=== PATIENT | female | born 1950 | race Caucasian/White ===

== ENCOUNTER 2017-04-10 15:42 | Inpatient (IN) | payer MEDICARE ==
--- NOTE | 2017-04-10 16:02 | ED Physician Chart ---
ED Chief Complaint/HPI - Patient Information Date Seen:: 04/10/17 Time Seen:: 16:02 Chief Complaint:: SUICIDAL IDEATION History of Present Illness:: THIS 67 YEAR OLD FEMALE IS DEPRESSED OVER HER MEDICAL PROBLEMS WHICH INCLUDE CIRRHOSIS (NO ALCOHOL IN PAST 3 YEARS). LEFT SIDED HEMIPARALYSIS, AND EASY BRUISING. SHE HAS A FRIEND WHO TRIED TO COMMIT SUICIDE BY SLASHING HER WRISTS, AND WHEN THAT FAILED SHE SHOT HERSELF IN THE HEAD AND IS NOW COMPLETELY BLIND. THE PATIENT IS DESPONDENT IN THAT SHE COULD END UP THE SAME WAY. 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 PT HAS 6/10 PAIN IN HER LT FOREARM WHICH IS ALSO CONTRACTED DUE TO NEUROLOGIC INJURY SUSTAINED AT THE TIME OF KNEE SURGERY. THERE ARE NO RELIEVING OR EXACERBATING FEATURES. PT DENIES HEADACHE, VISUAL PROBLEMS, DENTAL PAIN,NECK PAIN, CHEST PAIN OR ABDOMINAL PAIN. NO NAUSEA OR VOMITING OR DIARRHEA. NO MELENA. Allergies:: Allergies Allergy/AdvReac Type Severity Reaction Status Date / Time No Known Allergies Allergy Verified 04/10/17 15:57 ED Review of Systems - Review of Systems General/Constitutional: No fever, No chills, No weight loss, No diaphoresis, Other (mild swelling in both lower extremities.) Skin: Bruising Head: No headache, No light-headedness Eyes: No loss of vision, No diplopia ENT: No earache, No sore throat, No tinnitus Neck: No neck pain, No swelling, No thyromegaly, No stiffness, No mass noted Cardio Vascular: No chest pain, No palpitations, No orthopnea, other (MILD PERIPHERAL EDEMA NEAR ANKLES.) Pulmonary: No SOB, No cough, No sputum, No wheezing GI: No nausea, No vomiting, No diarrhea, No pain, No melena, No hematemesis G/U: No dysuria, No frequency, No hematuria, No nacturia Wood Pattern Maker: No abnormal vaginal bleed Musculoskeletal: Bone or joint pain (LEFT FOREARM AND WRIST AREA.), No back pain Psychiatric: Depression, Anxiety, No suicidal ideation, No auditory hallucination, No visual hallucination Hematopoietic: Bruising, No lymphadenopathy Allergic/Immuno: No urticaria, No angioedema Neurological: No syncope, Focal symptoms (LEFT UPPER EXTREMITY.), Weakness, No headache, No seizure, No vertigo Family Medical History - Family Member Maternal History Unknown: Yes ED Physical Exam - Physical Examination General/Constitutional: Awake, Well-developed, well-nourished, Alert Other Gen/Cons comments:: MILD TO MODERATE DISTRESS FROM LEFT FOREARM PAIN. Head: Atraumatic Eyes: Lids, conjuctiva normal, PERRL, EOMI Other Eyes comments:: SCERA ANICTERIC. NO NYSTAGMUS ED Labs/Radiology/EKG Results - Lab Results Results: Laboratory Tests 04/10/17 04/10/17 04/10/17 16:15 16:15 16:15 WBC 5.1 RBC 3.66 L Hgb 11.7 L Hct 34.9 L MCV 95.2 MCH 31.8 H MCHC Differential 33.5 RDW 19.1 Plt Count 80 L MPV 8.0 Neutrophils % 53.4 Lymphocytes % 33.6 Monocytes % 7.4 Eosinophils % 4.6 Basophils % 1.0 PT INR Sodium 138 Potassium 3.7 Chloride 109 H Carbon Dioxide 25.3 Anion Gap 7.4 BUN 10 Creatinine 0.5 L Est GFR ( Amer) > 60.0 Est GFR (Non-Af Amer) > 60.0 BUN/Creatinine Ratio 20.0 Glucose 127 H Calcium 8.9 Total Bilirubin 1.0 AST 33 ALT 15 Alkaline Phosphatase 100 Troponin I < 0.01 L Total Protein 6.3 Albumin 3.3 L Globulin 3.0 Albumin/Globulin Ratio 1.1 Amylase 51 Lipase 47 04/10/17 16:15 WBC RBC Hgb Hct MCV MCH MCHC Differential RDW Plt Count MPV Neutrophils % Lymphocytes % Monocytes % Eosinophils % Basophils % PT 12.5 H INR 1.19 Sodium Potassium Chloride Carbon Dioxide Anion Gap BUN Creatinine Est GFR ( Amer) Est GFR (Non-Af Amer) BUN/Creatinine Ratio Glucose Calcium Total Bilirubin AST ALT Alkaline Phosphatase Troponin I Total Protein Albumin Globulin Albumin/Globulin Ratio Amylase Lipase Laboratory Tests 04/10/17 04/10/17 04/10/17 16:15 16:15 16:15 WBC 5.1 RBC 3.66 L Hgb 11.7 L Hct 34.9 L MCV 95.2 MCH 31.8 H MCHC Differential 33.5 RDW 19.1 Plt Count 80 L MPV 8.0 Neutrophils % 53.4 Lymphocytes % 33.6 Monocytes % 7.4 Eosinophils % 4.6 Basophils % 1.0 PT INR Sodium 138 Potassium 3.7 Chloride 109 H Carbon Dioxide 25.3 Anion Gap 7.4 BUN 10 Creatinine 0.5 L Est GFR ( Amer) > 60.0 Est GFR (Non-Af Amer) > 60.0 BUN/Creatinine Ratio 20.0 Glucose 127 H Calcium 8.9 Total Bilirubin 1.0 AST 33 ALT 15 Alkaline Phosphatase 100 Ammonia Troponin I < 0.01 L Total Protein 6.3 Albumin 3.3 L Globulin 3.0 Albumin/Globulin Ratio 1.1 Amylase 51 Lipase 47 04/10/17 04/10/17 04/11/17 16:15 17:12 06:40 WBC 4.4 L RBC 3.41 L Hgb 11.0 L Hct 32.9 L MCV 96.5 MCH 32.2 H MCHC Differential 33.4 RDW 19.0 Plt Count 60 L D MPV 7.9 Neutrophils % 58.3 Lymphocytes % 29.2 Monocytes % 7.1 Eosinophils % 4.9 Basophils % 0.5 PT 12.5 H INR 1.19 Sodium Potassium Chloride Carbon Dioxide Anion Gap BUN Creatinine Est GFR ( Amer) Est GFR (Non-Af Amer) BUN/Creatinine Ratio Glucose Calcium Total Bilirubin AST ALT Alkaline Phosphatase Ammonia 74 H Troponin I Total Protein Albumin Globulin Albumin/Globulin Ratio Amylase Lipase 04/11/17 04/11/17 06:40 06:40 WBC RBC Hgb Hct MCV MCH MCHC Differential RDW Plt Count MPV Neutrophils % Lymphocytes % Monocytes % Eosinophils % Basophils % PT INR Sodium 138 Potassium 3.7 Chloride 110 H Carbon Dioxide 24.0 Anion Gap 7.7 BUN 9 Creatinine 0.4 L Est GFR ( Amer) > 60.0 Est GFR (Non-Af Amer) > 60.0 BUN/Creatinine Ratio 22.5 Glucose 100 D Calcium 8.7 Total Bilirubin 1.3 H AST 32 ALT 17 Alkaline Phosphatase 91 Ammonia 66 H Troponin I Total Protein 6.4 Albumin 3.1 L Globulin 3.3 Albumin/Globulin Ratio 0.9 L Amylase Lipase The CBC is unremarkable in that the patient has no leukocytosis or evidence of anemia. Her platelet count is depressed. Renal function studies were normal. Electrolytes were within normal parameters. Liver function tests show no elevation of the AST or the ALT or the alkaline phosphatase. Her INR was 1.1. In the past couple of weeks the patient has had a serum ammonia level in the 110 to 120 range. The ammonia level today was in the 60's range, which is a marked IMPRESSIONt IMPRESSION: NO ACUTE LABORATORY VALUES OF CLINICAL SIGNIFICANCE. EKG Interpretation: normal sinus rhythm in the 70 range with no ectopy. Normal QRS axis. Normal WA interval. Normal QRS duration. Normal QT interval. No significant ST segment elevation or depression. Q wave in AVF suggestive of old inferior ME. IMPRESSION: NO ACUTE ISCHEMIC FINDINGS. CXR: SINGLE AP VIEW. Mild Cardiomegaly. Prominent hilar markings bilaterally. No areas of pulmonary consolidation. No pleural effusion. No pneumothorax. IMPRESSION: NO ACUTE CARDIOPULMONARY FINDINGS. ED Assessment - Assessment General Assessment: CASE SUMMARY: THIS 67 YEAR OLD FEMALE WAS SENT TO THE ED FOR EVALUATION OF HER PSYCHIATRIC STATUS AND METABOLIC CONDITION. SHE WAS AWAKE AND ALERT AND ORIENTED X 4. SHE ADMITS BEING DEPRESSED OVER HER PHYSICAL CONDITION BUT HAS NO INTENT OF COMMITTING SUICIDE. SHE WAS VERY ADAMANT IN WANTING TO RETURN TO HER NURSING FACILITY IN THAT SHE HAS RELATIVES COMING FROM THE [facility] TO VISIT HER FOR THANKSGIVING. SHE HADN'T SEEN THESE COUSINS IN YEARS. HER LAB STUDIES WERE NORMAL OR WERE IMPROVED OVER RESENT RESULTS VALUES. HER NURSING FACILITY REFUSED TO ACCEPT HER BACK. SHE WILL BE ADMITTED TO A MED/ SURG BED AND HAVE A PSYCHIATRIC EVALUATION IN THE MORNING. ADMITTED TO DR. DOS SANTOS IN STABLE CONDITION. MDM DDX CIRRHOSIS: NOT Acute Hepatic encephalopathy based on physical examination and a trending lowering of her serum ammonia level. NOT Hepatic Coagulopathy based on her INR of 1.1. NOT G.I. bleeding based on no anemia and no history of melena or hematemesis. ED Septic Shock - . Is Septic Shock (SBP<90, OR Lactate>4 mmol\L) present?: No ED Reassessment (Disposition) - Reassessment Reassessment Condition:: Unchanged - Diagnosis Diagnosis:: CIRRHOSIS, DEPRESSION - Aftercare/Follow up Instructions Aftercare/Follow-Up Instructions:: Counseled pt regarding lab results/diagnosis & need follow up - Patient Disposition Discharge/Transfer:: Acute Care w/in this hosp Accepting Physician:: DR. DOS SANTOS ED Discharge Plan - Patient Disposition Admit/Discharge/Transfer: Acute Care w/in this hosp
[2017-04-10] MEDS ORDERED: Hydrocodone/APAP 5mg/325mg Tab ONE (16:34)
[2017-04-10 16:35] LABS: INR 1.19 (0.5-1.4); PROTHROMBIN TIME (TEST) 12.5 SECONDS (9.5-11.5)
[2017-04-10] MEDS ORDERED: Hydrocodone/APAP 5mg/325mg Tab PO ONE (16:36)
[2017-04-10 16:37] LABS: ALB/GLOB RATIO 1.1 (1.0-1.8); ALKALINE PHOSPHATASE 100 U/L (34-104); AMYLASE SERUM 51 U/L (29-103); ANION GAP 7.4 (7.0-16.0); BUN - UREA NITROGEN 10 mg/dL (7-25); CALCIUM SERUM 8.9 mg/dL (8.6-10.3); CARBON DIOXIDE 25.3 mEq/L (21.0-31.0); CHLORIDE 109 mEq/L (98-107); CREATININE - SERUM 0.5 mg/dL (0.6-1.2); GLUCOSE 127 mg/dL (70-105); LIPASE 47 U/L (11-82); POTASSIUM SERUM 3.7 mEq/L (3.5-5.1); SGOT 33 U/L (13-39); SGPT/ALT 15 U/L (7-52); SODIUM SERUM 138 mEq/L (136-145)
[2017-04-10 16:41] LABS: % EOSINOPHILS 4.6 % (0.0-5.0); % LYMPHOCYTES 33.6 % (20.0-50.0); % MONOCYTES 7.4 % (2.0-10.0); % NEUTROPHILS 53.4 % (40.0-80.0); HEMATOCRIT 34.9 % (41.0-60); HEMOGLOBIN 11.7 gm/dL (12-16); MEAN CELL VOLUME 95.2 fl (81-100); MEAN CORPUSCULAR HEMOGLOBIN 31.8 pg (27.0-31.0); MEAN CORPUSCULAR HGB CONC 33.5 pg (28.0-36.0); NEUTROPHILE ABSOLUTE 2.7 Th/cmm (1.8-8.0); PLATELET COUNT 80 Th/cmm (150-400); RED BLOOD COUNT 3.66 Mil/cmm (3.80-5.20); RED CELL DISTRIBUTION WIDTH 19.1 % (11.5-20.0); WHITE BLOOD COUNT 5.1 Th/cmm (4.8-10.8)
[2017-04-10] MEDS ORDERED: Acetaminophen 500 MG TAB PO PRN (20:16)
[2017-04-10] MEDS ORDERED: Non-Formulary Item 1 EA (Melatonin [Melatonin] 3 MG) PO PRN (20:16)
[2017-04-10] MEDS ORDERED: HYDROmorphone 1 mg/mL 1mL Syr IVP PRN (20:25)
[2017-04-10] MEDS ORDERED: Pneumococcal Vaccine 0.5 mL Vial IM ONE (22:09)
[2017-04-10] MEDS: Lactulose 10 Gm/15 mL 30mL UDC PO SCH (22:37)
[2017-04-11 07:12] LABS: AMMONIA BLOOD 66 umol/L (16-53)
[2017-04-11 07:14] LABS: ALB/GLOB RATIO 0.9 (1.0-1.8); ALKALINE PHOSPHATASE 91 U/L (34-104); ANION GAP 7.7 (7.0-16.0); BILIRUBIN,TOTAL 1.3 mg/dL (0.3-1.0); BUN - UREA NITROGEN 9 mg/dL (7-25); BUN/CREATININE RATIO 22.5; CALCIUM SERUM 8.7 mg/dL (8.6-10.3); CHLORIDE 110 mEq/L (98-107); CREATININE - SERUM 0.4 mg/dL (0.6-1.2); POTASSIUM SERUM 3.7 mEq/L (3.5-5.1); SGOT 32 U/L (13-39); SGPT/ALT 17 U/L (7-52); SODIUM SERUM 138 mEq/L (136-145)
[2017-04-11 07:19] LABS: % BASOPHILS 0.5 % (0.0-2.0); % EOSINOPHILS 4.9 % (0.0-5.0); % LYMPHOCYTES 29.2 % (20.0-50.0); % MONOCYTES 7.1 % (2.0-10.0); % NEUTROPHILS 58.3 % (40.0-80.0); HEMATOCRIT 32.9 % (41.0-60); MEAN CELL VOLUME 96.5 fl (81-100); MEAN CORPUSCULAR HEMOGLOBIN 32.2 pg (27.0-31.0); MEAN CORPUSCULAR HGB CONC 33.4 pg (28.0-36.0); MEAN PLATELET VOLUME 7.9 fl; NEUTROPHILE ABSOLUTE 2.6 Th/cmm (1.8-8.0); RED BLOOD COUNT 3.41 Mil/cmm (3.80-5.20); WHITE BLOOD COUNT 4.4 Th/cmm (4.8-10.8)
[2017-04-11 07:29] LABS: GLUCOSE 100 mg/dL (70-105)
[2017-04-11 07:32] LABS: PLATELET COUNT 60 Th/cmm (150-400)
[2017-04-11] MEDS: Lactulose 10 Gm/15 mL 30mL UDC PO SCH (08:42)
--- NOTE | 2017-04-11 08:43 | General Progress Note ---
Subjective - Review of Systems Service Date: 04/11/17 Subjective: I want to go back to the half-way. Objective - Results Result Diagrams: 04/11/17 06:40 04/11/17 06:40 Recent Labs: Laboratory Last Values WBC 4.4 Th/cmm (4.8-10.8) L 04/11/17 06:40 RBC 3.41 Mil/cmm (3.80-5.20) L 04/11/17 06:40 Hgb 11.0 gm/dL (12-16) L 04/11/17 06:40 Hct 32.9 % (41.0-60) L 04/11/17 06:40 MCV 96.5 fl (81-100) 04/11/17 06:40 MCH 32.2 pg (27.0-31.0) H 04/11/17 06:40 MCHC Differential 33.4 pg (28.0-36.0) 04/11/17 06:40 RDW 19.0 % (11.5-20.0) 04/11/17 06:40 Plt Count 60 Th/cmm (150-400) L D 04/11/17 06:40 MPV 7.9 fl 04/11/17 06:40 Neutrophils % 58.3 % (40.0-80.0) 04/11/17 06:40 Lymphocytes % 29.2 % (20.0-50.0) 04/11/17 06:40 Monocytes % 7.1 % (2.0-10.0) 04/11/17 06:40 Eosinophils % 4.9 % (0.0-5.0) 04/11/17 06:40 Basophils % 0.5 % (0.0-2.0) 04/11/17 06:40 PT 12.5 SECONDS (9.5-11.5) H 04/10/17 16:15 INR 1.19 (0.5-1.4) 04/10/17 16:15 Sodium 138 mEq/L (136-145) 04/11/17 06:40 Potassium 3.7 mEq/L (3.5-5.1) 04/11/17 06:40 Chloride 110 mEq/L (98-107) H 04/11/17 06:40 Carbon Dioxide 24.0 mEq/L (21.0-31.0) 04/11/17 06:40 Anion Gap 7.7 (7.0-16.0) 04/11/17 06:40 BUN 9 mg/dL (7-25) 04/11/17 06:40 Creatinine 0.4 mg/dL (0.6-1.2) L 04/11/17 06:40 Est GFR ( Amer) > 60.0 ml/min (>90) 04/11/17 06:40 Est GFR (Non-Af Amer) > 60.0 ml/min 04/11/17 06:40 BUN/Creatinine Ratio 22.5 04/11/17 06:40 Glucose 100 mg/dL (70-105) D 04/11/17 06:40 Calcium 8.7 mg/dL (8.6-10.3) 04/11/17 06:40 Total Bilirubin 1.3 mg/dL (0.3-1.0) H 04/11/17 06:40 AST 32 U/L (13-39) 04/11/17 06:40 ALT 17 U/L (7-52) 04/11/17 06:40 Alkaline Phosphatase 91 U/L (34-104) 04/11/17 06:40 Ammonia 66 umol/L (16-53) H 04/11/17 06:40 Troponin I < 0.01 ng/mL (0.01-0.05) L 04/10/17 16:15 Total Protein 6.4 gm/dL (6.0-8.3) 04/11/17 06:40 Albumin 3.1 gm/dL (3.7-5.3) L 04/11/17 06:40 Globulin 3.3 gm/dL 04/11/17 06:40 Albumin/Globulin Ratio 0.9 (1.0-1.8) L 04/11/17 06:40 Amylase 51 U/L (29-103) 04/10/17 16:15 Lipase 47 U/L (11-82) 04/10/17 16:15 - Physical Exam Vitals and I&O: Vital Signs Temp 98.2 F 04/11/17 04:11 Pulse 67 04/11/17 04:11 Resp 19 04/11/17 04:11 BP 124/57 04/11/17 04:11 Pulse Ox 97 04/11/17 04:11 Active Medications: Current Medications Acetaminophen (Tylenol Extra Strength) 500 mg PO Q6H PRN PRN Reason: Pain (Mild) Stop: 06/09/17 20:15 Ferrous Sulfate (Iron) 325 mg PO BID [facility] Stop: 06/10/17 08:59 Gabapentin (Neurontin) 300 mg PO TID [facility] Stop: 06/09/17 20:59 Last Admin: 04/10/17 22:38 Dose: 300 mg Haloperidol (Haldol) 2 mg PO QID PRN PRN Reason: Agitation Hydromorphone HCl (Dilaudid) 1 mg IVP Q8HR PRN PRN Reason: Pain (Severe) Stop: 06/09/17 20:24 Lactulose (Cephulac) 40 gm PO TID [facility] Stop: 06/09/17 20:59 Last Admin: 04/10/17 22:37 Dose: 40 gm Miscellaneous (Melatonin [Melatonin]) 3 mg PO HS PRN PRN Reason: Insomnia Tramadol HCl (Ultram) 50 mg PO TID PRN PRN Reason: Pain (Mild) Stop: 06/09/17 20:15 General: Alert, Oriented x3, No acute distress HEENT: Atraumatic Neck: Supple Cardiovascular: Regular rate Lungs: Clear to auscultation Abdomen: Bowel sounds, Soft Extremities: Other (Left hemiparalysis) Neurological: Other (Non ambulatory) Skin: Other (Warm and dry) Psych/Mental Status: Mental status NL (Calm, oriented, in no acute distress. ) Assessment/Plan - Assessment Assessment: Patient is awake, alert, calm, in no acute distress. Dx suicidal ideation, [place], Hemiparalysis left side, anemia, Thrombocytopenia. - Plan Plan: Patient is continue with SNF meds. Consult with Psychiatry is requested.
[2017-04-11] MEDS ORDERED: Ferrous Sulfate 325 MG TAB PO SCH (09:00)
--- NOTE | 2017-04-11 11:15 | Consultation ---
DATE OF CONSULTATION: 04/11/2017 PHYSICIAN REQUESTING CONSULTATION: Dr. Martinez. REASON FOR CONSULTATION: Suicidal ideation. IDENTIFYING DATA: This patient is a 67-year-old woman, resident of [facility]. Information obtained by interviewing the patient as well as reviewing the admission papers and talking to the staff members. CHIEF COMPLAINT: "I'm feeling depressed, I want to kill myself." HISTORY OF PRESENT ILLNESS: This patient has been referred from the [facility] facility because the patient has been threatening to take her life. Chart is reviewed. The patient is interviewed. During the interview, the patient is stating that for one reason or the other for the past 2 weeks, she is not feeling well and has been having thoughts of hurting herself. The patient at this time is still insisting that there is no reason for her to go on with her life because of her multiple medical problems. The patient is also reporting that she is tired. PAST PSYCHIATRIC HISTORY: Details are not known. Medical history and physical examination request done by Dr. Martinez. SUBSTANCE ABUSE HISTORY: None. PHYSICAL OR SEXUAL ABUSE HISTORY: None. LEGAL PROBLEMS: None at this time. STRENGTHS AND ASSETS: The patient is motivated. MENTAL EXAMINATION: The patient is a 67-year-old woman, moderately obese, superficially cooperative. Eye contact is poor. Mood depressed. Affect is constricted. The patient is isolative and withdrawn. The patient is insisting on hurting herself. The patient's coping skills are noted to be very poor at this time. The patient is denying any command hallucinations, but the patient has short-term memory deficits with long-term memory seems to be fair. The patient is suicidal with the plans. No homicidal ideation is noted, but patient is not giving any clear ideas; however, she wants to cut herself. The patient is not homicidal. DIAGNOSTIC IMPRESSION: AXIS I: Major depressive disorder, first episode and severe. PLAN: The patient is going to be placed on the Lexapro 5 mg and followed up with supportive therapy. Once patient is stabilized, the patient is going to be discharged to the Geropsychiatric Unit for further stabilization of her symptoms. Thank you, Dr. Martinez, for allowing me to participate in the care of the patient. [facility]# [id number]
[2017-04-12] MEDS ORDERED: Escitalopram Oxalate 5 mg Tab PO SCH (09:00)
== END 2017-04-11 14:12 | DRG 95 ==
LOC: ER 15:42 → MSI 19:21
PROVIDERS: ADMIT General Practice; ATTEND General Practice
DX: G61.0 Guillain-Barre syndrome (principal); R45.851 Suicidal ideations; D69.6 Thrombocytopenia, unspecified; F32.2 Major depressive disorder, single episode, severe without psychotic features; G81.94 Hemiplegia, unspecified affecting left nondominant side; K74.60 Unspecified cirrhosis of liver; D64.9 Anemia, unspecified
CPT/HCPCS: 36415-UA; 80053-TC; 82140-TC; 82150-TC; 83690-TC; 84443-TC; 84484-TC; 85025-TC; 85610-TC; 93005; 96374

== ENCOUNTER 2017-04-11 14:13 | Inpatient (IN) | payer MEDICARE ==
[2017-04-11 14:25] VITALS: BP 114/74
[2017-04-11] MEDS ORDERED: Non-Formulary Item 1 EA (Melatonin [Melatonin] 3 MG) PO PRN (14:27)
[2017-04-11] MEDS ORDERED: Magnesium Hydroxide (MOM) 30 mL UDC PO PRN (14:30)
[2017-04-11] MEDS ORDERED: Maalox 30 mL Cup PO PRN (14:30)
[2017-04-11] MEDS: Ferrous Sulfate 325 MG TAB PO SCH (16:23)
[2017-04-11] MEDS: Lactulose 10 Gm/15 mL 30mL UDC PO SCH (20:59)
--- NOTE | 2017-04-12 12:57 | History and Physical ---
History of Present Illness - HPI Chief Complaint: Suicidal Ideation HPI: Patient is a permanent resident of a SNF, she told to nurses that she wants to hurt hersel. For this reazon she was sent to ER. Patient was evaluated by Psychiatry and recommendation was to send patient to [facility]. Vital Signs: Last Vital Signs Temp 98.4 F 04/12/17 06:27 Pulse 69 04/12/17 06:27 Resp 18 04/12/17 06:27 BP 110/57 04/12/17 06:27 Pulse Ox 98 04/12/17 06:27 Past Medical History Cardiovascular: Report: CAD Pulmonary: Report: No Pertinent Hx STAFFING MANAGER: Report: Other ([place]kins [place] with left hemiparalysis.) GI: Report: No Pertinent Hx Psych: Report: Depression Musculoskeletal: Report: Other (Left side hemiparalysis) Rheumatologic: Report: No pertinent Hx Infectious Disease: Report: No Pertinent Hx Renal/: Report: No Pertinent Hx Endocrine: Report: No Pertinent Hx Dermatology: Report: No Pertinent Hx Other History: Chronic anemia, and thrombocytopenia. Family Medical History - Family Member Maternal History Unknown: Yes Social History Smoke: No Alcohol: None Drugs: None Lives: Assisted Domestic Violence: Negative - Medications Home Medications: Home Medication Medication Instructions Recorded Type Acetaminophen [Pain Relief] 500 mg PO PRN 04/10/17 History Ferrous Sulfate [Iron] 325 mg PO BID 04/10/17 History Gabapentin [Neurontin] 300 mg PO TID 04/10/17 History Haloperidol 2 mg PO QID PRN 04/10/17 History Lactulose 60 ml PO TID 04/10/17 History Melatonin 3 mg PO HS PRN 04/10/17 History Tramadol HCl [Ultram] 50 mg PO TID PRN 04/10/17 History - Allergies Allergies/Adverse Reactions: Allergies Allergy/AdvReac Type Severity Reaction Status Date / Time No Known Allergies Allergy Verified 04/10/17 15:57 Review of Systems - Review of Systems Constitutional: Report: No Significant Eyes: Report: No Significant ENT: Report: No Significant Respiratory: Report: No Significant Cardiovascular: Report: No Significant Gastrointestinal: Report: No Significant Genitourinary: Report: No Significant Musculoskeletal: Report: Other (Left side hemiparesis) Skin: Report: No Significant Neurological: Report: Weakness, Other (Left side hemiparesis) Physical Exam - Physical Exam HEENT: Report: Ears Nose Throat within normal limits Neck: Report: Within normal limits Cardiovascular Systems: Report: Regular, Rate and Rhythm Respiratory: Report: Breath Sounds are within normal limits Abdomen: Report: Non-tender to palpation Back: Report: Inspection of back is within normal limits. Extremities: Report: Other (Left side hemiparalysis) Skin: Report: Color of skin is within normal limits, Warm, Dry Neuro/Psych: Report: Depressed affect - Assessment Assessment: patient is awake, alert, calm. Dx: Suicidal ideation, [place], Hemiparalysis of left side, Chronic anemia, Thrombocytopenia. - Plan Plan: Patient is follow by Psychiatry, she is continue with SNF meds.
--- NOTE | 2017-04-12 13:32 | Diagnostic Imaging Report ---
Abdominal ultrasound HISTORY: Cirrhosis The liver appears somewhat enlarged. Evaluation of the gallbladder is limited due to difficulty in patient cooperation and positioning. These limited views demonstrate what appear to be an approximate 1.9 x 1.0 x 1.8 cm intraluminal echogenic density near the gallbladder neck. Findings suggest changes cholelithiasis. No biliary dilatation (common bile duct equals 6 mm). The pancreas is not well seen due to bowel gas. No definite focal renal lesions. No hydronephrosis. The spleen is increased in size (15.3 cm length). No other retroperitoneal or intra-abdominal abnormalities. IMPRESSION: 1. Limited exam due to difficulty in patient cooperation, positioning, and bowel gas. 2. Findings suggesting cholelithiasis 3. Hepatosplenomegaly
[2017-04-12] MEDS: Ferrous Sulfate 325 MG TAB PO SCH ×2 (15:48→16:33)
[2017-04-12] MEDS: Lactulose 10 Gm/15 mL 30mL UDC PO SCH ×3 (15:48→20:49)
[2017-04-12] MEDS: Multivitamin Tab PO SCH (15:49)
--- NOTE | 2017-04-13 00:51 | Progress Notes ---
DATE: 04/12/2017 SUBJECTIVE: Staff was spoken to. The patient is interviewed. Mood is noted to be irritable. Affect is constricted. The patient is stating that she has been having lots of aches and pains. The patient is currently on Neurontin and Haldol and the patient has been able to tolerate the medications. No side effects to the medications are noted at this time. ASSESSMENT: The patient is still psychotic. PLAN: To continue the patient with supportive therapy, encouraged the patient to verbalize the concerns rather than to act out. JOB# [id number]
[2017-04-13] MEDS: Ferrous Sulfate 325 MG TAB PO SCH ×2 (09:20→16:25)
[2017-04-13] MEDS: Multivitamin Tab PO SCH (09:20)
[2017-04-13] MEDS: Lactulose 10 Gm/15 mL 30mL UDC PO SCH ×3 (09:23→20:58)
--- NOTE | 2017-04-13 16:37 | General Progress Note ---
Subjective - Review of Systems Service Date: 04/13/17 Subjective: I want to go back to [facility] Objective - Physical Exam Vitals and I&O: Vital Signs Temp 97.8 F 04/13/17 15:45 Pulse 75 04/13/17 15:45 Resp 20 04/13/17 15:45 BP 124/69 04/13/17 15:45 Pulse Ox 97 04/13/17 15:45 Intake & Output 04/12/17 04/13/17 04/13/17 18:59 06:59 18:59 Other: # Voids 3 Active Medications: Current Medications Acetaminophen (Tylenol Extra Strength) 500 mg PO Q4H PRN PRN Reason: Pain (Mild) Stop: 06/10/17 14:26 Al Hydrox/Mg Hydrox/Simethicone (Maalox) 30 ml PO Q4HR PRN PRN Reason: GI DISTRESS Stop: 06/10/17 14:29 Ferrous Sulfate (Iron) 325 mg PO BID [facility] Stop: 06/10/17 16:59 Last Admin: 04/13/17 16:25 Dose: 325 mg Gabapentin (Neurontin) 300 mg PO TID [facility] Stop: 06/10/17 20:59 Last Admin: 04/13/17 13:55 Dose: 300 mg Haloperidol (Haldol) 2 mg PO QID PRN PRN Reason: Psychosis Lactulose (Cephulac) 60 gm PO TID [facility] Stop: 06/10/17 20:59 Last Admin: 04/13/17 13:55 Dose: 60 gm Lorazepam (Ativan) 0.5 mg PO Q4HR PRN; Protocol PRN Reason: Anxiety Stop: 05/11/17 14:29 Magnesium Hydroxide (Milk Of Magnesia) 30 ml PO HS PRN PRN Reason: Constipation Multivitamins/Vitamin C (Theragran) 1 tab PO DAILY [facility] Stop: 06/11/17 08:59 Last Admin: 04/13/17 09:20 Dose: 1 tab Tramadol HCl (Ultram) 50 mg PO TID PRN PRN Reason: Pain (Moderate) Stop: 06/10/17 14:26 Last Admin: 04/11/17 16:23 Dose: 50 mg Zolpidem Tartrate (Ambien) 5 mg PO HS PRN PRN Reason: Insomnia Stop: 06/10/17 14:29 General: Alert, No acute distress HEENT: Atraumatic Neck: Supple Cardiovascular: Regular rate Lungs: Clear to auscultation Abdomen: Bowel sounds, Soft Extremities: Other (No edema) Neurological: Other (Non ambulatory) Psych/Mental Status: Other (Confused) Assessment/Plan - Assessment Assessment: patient is awake, alert, calm. Dx: Suicidal ideation, [place], Hemiparalysis of left side, Chronic anemia, Thrombocytopenia. - Plan Plan: Patient is follow by Psychiatry, she is continue with SNF meds.
--- NOTE | 2017-04-13 23:30 | Progress Notes ---
DATE: 04/13/2017 SUBJECTIVE: Staff was spoken to. The patient is interviewed. Mood is noted to be irritable. Affect is constricted. Insight and judgment are noted to be still impaired. Coping skills are noted to be very poor. The patient has been having difficult time to cope with the stress. The patient is currently on Haldol on a p.r.n. basis. The patient has been having paranoia. Sleep and appetite are also noted to be poor. ASSESSMENT: The patient is still having dysphoria and impulsivity. PLAN: To continue the patient with supportive therapy. I encouraged the patient to verbalize the concerns rather than to act out. The patient is not ready to be discharged to a lower level of care yet. [facility]# [id number]
--- NOTE | 2017-04-14 03:11 | Consultation ---
DATE OF CONSULTATION: 04/13/2017 INPATIENT GASTROINTESTINAL CONSULTATION REASON FOR CONSULTATION: Cholelithiasis. CONSULTING PHYSICIAN: Dr. Bernabe Martinez. HISTORY OF PRESENT ILLNESS: The patient is a 67-year-old female who was admitted to the [facility] with suicidal ideation. The patient underwent an abdominal ultrasound for unclear reasons and cholelithiasis was reported, thus GI is asked for an evaluation. At the current time, the patient is seen in a wheelchair. She has no complaints. Reports no abdominal pain or any other issues. She denies hematochezia, melena or hematemesis. She does note that she has had a colonoscopy as recently as 3 years ago and that she has a history of polyps and she is due again in 1 year. She also reports her father had colon cancer at age 62. PAST MEDICAL HISTORY: There is reported history of Gilbert's disease and depression. PAST SURGICAL HISTORY: The patient denies any abdominal surgeries. FAMILY HISTORY: The patient's father had colon cancer at age 62. SOCIAL HISTORY: The patient denies smoking or any other alcohol or other drug use at the current time. She does report that she used to drink 3 years ago heavily, but has been abstinent since that time. REVIEW OF SYSTEMS: A 12-point review of systems was performed and is negative other than the pertinent positives mentioned in history of present illness. ALLERGIES: No known drug allergies. MEDICATIONS: Tylenol as needed, Maalox, iron, Neurontin, Haldol, lactulose, Ativan, milk of magnesia, vitamin C, tramadol, Ambien. PHYSICAL EXAMINATION: VITAL SIGNS: Blood pressure is 111/67, pulse of 67 beats per minute, temperature 97.6, respiratory rate 18, oxygenation 96% on room air. GENERAL: The patient is alert and oriented x 3, in no apparent distress. She is sitting in a wheelchair. HEAD, EARS, EYES, NOSE, AND THROAT: There is no scleral icterus. Extraocular muscles are intact. Moist mucous membranes. Pupils are equal and reactive to light. NECK: Supple, no JVD, no thyromegaly. CHEST: Clear to auscultation bilaterally. CARDIOVASCULAR: S1, S2 are present, regular rate and rhythm. ABDOMEN: Obese, soft, nontender to palpation, no guarding, no rebound. No fluid wave. EXTREMITIES: No pitting edema seen. Positive pulses. SKIN: No obvious jaundice or other rashes. LABORATORY DATA: From 04/11/2017 are as follows: Sodium 138, BUN 9, creatinine 0.4, AST 32, ALT 17, total bilirubin 1.3, lipase 47. No TSH was measured. INR 1.19. White blood cell count 4.4, hemoglobin 11, platelet count 60. An abdominal ultrasound was performed on 04/12/2017 and shows somewhat enlarged liver. There is a 1.9-1.8 cm intraluminal echogenic density near the gallbladder neck suggest changes that were consistent with cholelithiasis, no biliary dilation. Pancreas is not well seen. IMPRESSION AND RECOMMENDATIONS: This is a 67-year-old female with history of depression and previous alcoholism who is admitted to the [facility] with suicidal ideation. Gastrointestinal is asked to evaluate abnormal ultrasound finding. 1. Cholelithiasis. 2. History of alcoholism. 3. Thrombocytopenia. DISCUSSION: This patient may very well have liver cirrhosis given her low platelet count, although the ultrasound does not show pierre cirrhosis visually. Regardless, she is doing well, symptomatically from a gastrointestinal standpoint. The ultrasound does show a 1.9 cm stone within the gallbladder, although this is not currently causing the patient any issues such as infection, cholecystitis or biliary type pain, thus no intervention is required at this point. If the patient does develop cholecystitis, which will be manifested by fever, pain and leukocytosis, then surgical consult will be required. RECOMMENDATION: 1. No further intervention is needed given the patient does not have any active signs of infection. 2. She should have a GI outpatient evaluation when she is discharged to help determine if she actually has cirrhosis, in fact, disease process. 3. Outpatient EGD can be considered given there may be a history of cirrhosis. 4. Other care as per Dr. Martinez. Thank you for allowing me to participate in this patient's care. Please call with any further questions. JOB# [id number]
[2017-04-14] MEDS: Multivitamin Tab PO SCH (08:52)
[2017-04-14] MEDS: Lactulose 10 Gm/15 mL 30mL UDC PO SCH ×3 (08:52→20:10)
[2017-04-14] MEDS: Ferrous Sulfate 325 MG TAB PO SCH ×2 (08:52→16:43)
--- NOTE | 2017-04-14 09:14 | General Progress Note ---
Subjective - Review of Systems Service Date: 04/14/17 Subjective: I want to go back to [facility] Objective - Physical Exam Vitals and I&O: Vital Signs Temp 97.7 F 04/14/17 06:22 Pulse 64 04/14/17 06:22 Resp 18 04/14/17 06:22 BP 108/69 04/14/17 06:22 Pulse Ox 96 04/14/17 06:22 Intake & Output 04/13/17 04/14/17 04/14/17 18:59 06:59 18:59 Intake Total 120 Balance 120 Intake: Oral 120 Other: # Voids 3 Active Medications: Current Medications Acetaminophen (Tylenol Extra Strength) 500 mg PO Q4H PRN PRN Reason: Pain (Mild) Stop: 06/10/17 14:26 Al Hydrox/Mg Hydrox/Simethicone (Maalox) 30 ml PO Q4HR PRN PRN Reason: GI DISTRESS Stop: 06/10/17 14:29 Ferrous Sulfate (Iron) 325 mg PO BID [facility] Stop: 06/10/17 16:59 Last Admin: 04/14/17 08:52 Dose: 325 mg Gabapentin (Neurontin) 300 mg PO TID [facility] Stop: 06/10/17 20:59 Last Admin: 04/14/17 08:52 Dose: 300 mg Haloperidol (Haldol) 2 mg PO QID PRN PRN Reason: Psychosis Lactulose (Cephulac) 60 gm PO TID [facility] Stop: 06/10/17 20:59 Last Admin: 04/14/17 08:52 Dose: 60 gm Lorazepam (Ativan) 0.5 mg PO Q4HR PRN; Protocol PRN Reason: Anxiety Stop: 05/11/17 14:29 Magnesium Hydroxide (Milk Of Magnesia) 30 ml PO HS PRN PRN Reason: Constipation Multivitamins/Vitamin C (Theragran) 1 tab PO DAILY [facility] Stop: 06/11/17 08:59 Last Admin: 04/14/17 08:52 Dose: 1 tab Tramadol HCl (Ultram) 50 mg PO TID PRN PRN Reason: Pain (Moderate) Stop: 06/10/17 14:26 Last Admin: 04/11/17 16:23 Dose: 50 mg Zolpidem Tartrate (Ambien) 5 mg PO HS PRN PRN Reason: Insomnia Stop: 06/10/17 14:29 General: Alert, No acute distress HEENT: Atraumatic Neck: Supple Cardiovascular: Regular rate Lungs: Clear to auscultation Abdomen: Bowel sounds, Soft Extremities: Other (No edema) Neurological: Other (Non ambulatory) Psych/Mental Status: Other (Confused) Assessment/Plan - Assessment Assessment: patient is awake, alert, calm. Dx: Suicidal ideation, Jenkins barre, Hemiparalysis of left side, Chronic anemia, Thrombocytopenia. - Plan Plan: Patient is follow by Psychiatry, she is continue with SNF meds.
--- NOTE | 2017-04-14 10:29 | GI Progress Note ---
Subjective - Review of Systems Service Date: 04/14/17 Subjective: Pt would like to leave psych unit. No pain Objective - Physical Exam Vitals and I&O: Vital Signs Temp 97.7 F 04/14/17 06:22 Pulse 64 04/14/17 06:22 Resp 18 04/14/17 06:22 BP 108/69 04/14/17 06:22 Pulse Ox 96 04/14/17 06:22 Intake & Output 04/13/17 04/14/17 04/14/17 18:59 06:59 18:59 Intake Total 120 Balance 120 Intake: Oral 120 Other: # Voids 3 Active Medications: Current Medications Acetaminophen (Tylenol Extra Strength) 500 mg PO Q4H PRN PRN Reason: Pain (Mild) Stop: 06/10/17 14:26 Al Hydrox/Mg Hydrox/Simethicone (Maalox) 30 ml PO Q4HR PRN PRN Reason: GI DISTRESS Stop: 06/10/17 14:29 Ferrous Sulfate (Iron) 325 mg PO BID [facility] Stop: 06/10/17 16:59 Last Admin: 04/14/17 08:52 Dose: 325 mg Gabapentin (Neurontin) 300 mg PO TID [facility] Stop: 06/10/17 20:59 Last Admin: 04/14/17 08:52 Dose: 300 mg Haloperidol (Haldol) 2 mg PO QID PRN PRN Reason: Psychosis Lactulose (Cephulac) 60 gm PO TID [facility] Stop: 06/10/17 20:59 Last Admin: 04/14/17 08:52 Dose: 60 gm Lorazepam (Ativan) 0.5 mg PO Q4HR PRN; Protocol PRN Reason: Anxiety Stop: 05/11/17 14:29 Magnesium Hydroxide (Milk Of Magnesia) 30 ml PO HS PRN PRN Reason: Constipation Multivitamins/Vitamin C (Theragran) 1 tab PO DAILY [facility] Stop: 06/11/17 08:59 Last Admin: 04/14/17 08:52 Dose: 1 tab Tramadol HCl (Ultram) 50 mg PO TID PRN PRN Reason: Pain (Moderate) Stop: 06/10/17 14:26 Last Admin: 04/11/17 16:23 Dose: 50 mg Zolpidem Tartrate (Ambien) 5 mg PO HS PRN PRN Reason: Insomnia Stop: 06/10/17 14:29 General: Alert, No acute distress HEENT: Atraumatic Neck: Supple Cardiovascular: Regular rate Abdomen: Bowel sounds, Soft, Other (no guard, no rebound) Extremities: Other (No edema) Neurological: Other (Non ambulatory) Assessment/Plan - Assessment Assessment: # Gilbert's syndrome # Cholelithiasis with large GB stone on US # Suicidal ideation No intervention is necessary on GB stone given it is not causing cystic duct obstruction and cholecystitis (or any biliary pain issues). # Thrombocytopenia # History of EtOH use in the past Possible cirrhosis, which can be further evaluated as an outpatient Recommendations: - no intervention on GB stone unless she becomes symptomatic or develops an infection related to this - Gilbert's requires no intervention - Pt should follow with energy administrator as outpt after dc to examine for any underlying cirrhosis due to EtOH - psychiatric care as per psychiatrist GI to see as needed, please call with questions
--- NOTE | 2017-04-15 01:57 | Progress Notes ---
DATE: 04/14/2017 SUBJECTIVE: Staff was spoken to. The patient is interviewed. Mood is noted to be depressed. Affect is constricted. The patient's insight and judgment are noted to be improving. The patient is stating that she made a major mistake and she thinks that she is not going to be doing that mistake again, the patient has been currently on 2 mg of Haldol and it is decided to change the frequency to 1 mg b.i.d. p.r.n. for acute agitation and the patient is going to be placed on low dose of the Lexapro that is 5 mg for her depression, which is going to be gradually increased. ASSESSMENT: The patient is still depressed and having suicidal ideation. The patient is still depressed and is not ready to be discharged. The patient is talking about her family coming for Thanksgiving and she needs to be there, as the patient at this time is not ready to be discharged yet. PLAN: To continue the patient with supportive therapy, encouraged the patient to verbalize the concerns rather than to act out. JOB# [id number]
[2017-04-15 08:43] LABS: % BASOPHILS 0.5 % (0.0-2.0); % EOSINOPHILS 4.9 % (0.0-5.0); % LYMPHOCYTES 29.4 % (20.0-50.0); % MONOCYTES 8.4 % (2.0-10.0); % NEUTROPHILS 56.8 % (40.0-80.0); HEMATOCRIT 32.2 % (41.0-60); MEAN CELL VOLUME 95.2 fl (81-100); MEAN CORPUSCULAR HEMOGLOBIN 32.7 pg (27.0-31.0); MEAN CORPUSCULAR HGB CONC 34.3 pg (28.0-36.0); MEAN PLATELET VOLUME 8.2 fl; NEUTROPHILE ABSOLUTE 3.6 Th/cmm (1.8-8.0); PLATELET COUNT 62 Th/cmm (150-400); RED BLOOD COUNT 3.38 Mil/cmm (3.80-5.20); RED CELL DISTRIBUTION WIDTH 18.3 % (11.5-20.0)
[2017-04-15 09:00] LABS: ALKALINE PHOSPHATASE 86 U/L (34-104); ANION GAP 6.4 (7.0-16.0); BILIRUBIN,TOTAL 1.7 mg/dL (0.3-1.0); BUN - UREA NITROGEN 9 mg/dL (7-25); CALCIUM SERUM 8.7 mg/dL (8.6-10.3); CARBON DIOXIDE 25.2 mEq/L (21.0-31.0); CHLORIDE 103 mEq/L (98-107); CREATININE - SERUM 0.5 mg/dL (0.6-1.2); GLUCOSE 92 mg/dL (70-105); POTASSIUM SERUM 3.6 mEq/L (3.5-5.1); SGOT 25 U/L (13-39); SGPT/ALT 12 U/L (7-52); SODIUM SERUM 131 mEq/L (136-145)
[2017-04-15] MEDS ORDERED: Escitalopram Oxalate 5 mg Tab PO SCH ×2 (09:00)
[2017-04-15 09:13] LABS: WHITE BLOOD COUNT 6.2 Th/cmm (4.8-10.8)
--- NOTE | 2017-04-15 09:24 | General Progress Note ---
Subjective - Review of Systems Service Date: 04/15/17 Subjective: I want to go back to SNF Objective - Results Result Diagrams: 04/15/17 06:00 Recent Labs: Laboratory Last Values WBC 6.2 Th/cmm (4.8-10.8) D 04/15/17 06:00 RBC 3.38 Mil/cmm (3.80-5.20) L 04/15/17 06:00 Hgb 11.0 gm/dL (12-16) L 04/15/17 06:00 Hct 32.2 % (41.0-60) L 04/15/17 06:00 MCV 95.2 fl (81-100) 04/15/17 06:00 MCH 32.7 pg (27.0-31.0) H 04/15/17 06:00 MCHC Differential 34.3 pg (28.0-36.0) 04/15/17 06:00 RDW 18.3 % (11.5-20.0) 04/15/17 06:00 Plt Count 62 Th/cmm (150-400) L 04/15/17 06:00 MPV 8.2 fl 04/15/17 06:00 Neutrophils % 56.8 % (40.0-80.0) 04/15/17 06:00 Lymphocytes % 29.4 % (20.0-50.0) 04/15/17 06:00 Monocytes % 8.4 % (2.0-10.0) 04/15/17 06:00 Eosinophils % 4.9 % (0.0-5.0) 04/15/17 06:00 Basophils % 0.5 % (0.0-2.0) 04/15/17 06:00 - Physical Exam Vitals and I&O: Vital Signs Temp 98.7 F 04/15/17 06:36 Pulse 71 04/15/17 06:36 Resp 20 04/15/17 06:36 BP 117/65 04/15/17 06:36 Pulse Ox 96 04/15/17 06:36 Intake & Output 04/14/17 04/15/17 04/15/17 18:59 06:59 18:59 Intake Total 1200 Balance 1200 Intake: Oral 1200 Other: # Bowel Movements 1 Active Medications: Current Medications Acetaminophen (Tylenol Extra Strength) 500 mg PO Q4H PRN PRN Reason: Pain (Mild) Stop: 06/10/17 14:26 Al Hydrox/Mg Hydrox/Simethicone (Maalox) 30 ml PO Q4HR PRN PRN Reason: GI DISTRESS Stop: 06/10/17 14:29 Escitalopram Oxalate (Lexapro) 5 mg PO DAILY [facility] PRN Reason: Protocol Stop: 06/14/17 08:59 Ferrous Sulfate (Iron) 325 mg PO BID [facility] Stop: 06/10/17 16:59 Last Admin: 04/14/17 16:43 Dose: 325 mg Gabapentin (Neurontin) 300 mg PO TID [facility] Stop: 06/10/17 20:59 Last Admin: 04/14/17 20:10 Dose: 300 mg Haloperidol (Haldol) 1 mg PO BID PRN PRN Reason: Psychosis Stop: 06/10/17 14:25 Lactulose (Cephulac) 60 gm PO TID [facility] Stop: 06/10/17 20:59 Last Admin: 04/14/17 20:10 Dose: 60 gm Lorazepam (Ativan) 0.5 mg PO Q4HR PRN; Protocol PRN Reason: Anxiety Stop: 05/11/17 14:29 Magnesium Hydroxide (Milk Of Magnesia) 30 ml PO HS PRN PRN Reason: Constipation Multivitamins/Vitamin C (Theragran) 1 tab PO DAILY [facility] Stop: 06/11/17 08:59 Last Admin: 04/14/17 08:52 Dose: 1 tab Tramadol HCl (Ultram) 50 mg PO TID PRN PRN Reason: Pain (Moderate) Stop: 06/10/17 14:26 Last Admin: 04/14/17 20:10 Dose: 50 mg Zolpidem Tartrate (Ambien) 5 mg PO HS PRN PRN Reason: Insomnia Stop: 06/10/17 14:29 Last Admin: 04/14/17 20:53 Dose: 5 mg General: Alert, No acute distress HEENT: Atraumatic Neck: Supple Cardiovascular: Regular rate Lungs: Clear to auscultation Abdomen: Bowel sounds, Soft, Other (no guard, no rebound) Extremities: Other (No edema) Neurological: Other (Non ambulatory) Psych/Mental Status: Other (Confused) Assessment/Plan - Assessment Assessment: patient is awake, alert, calm. Dx: Suicidal ideation, Jenkins barre, Hemiparalysis of left side, Chronic anemia, Thrombocytopenia. - Plan Plan: Patient is follow by Psychiatry, she is continue with SNF meds.
[2017-04-15] MEDS: Multivitamin Tab PO SCH (09:40)
[2017-04-15] MEDS: Lactulose 10 Gm/15 mL 30mL UDC PO SCH ×3 (09:40→22:10)
[2017-04-15] MEDS: Ferrous Sulfate 325 MG TAB PO SCH ×2 (09:41→17:09)
--- NOTE | 2017-04-16 02:23 | Progress Notes ---
DATE: 04/15/2017 PSYCHIATRIC PROGRESS NOTE SUBJECTIVE: Staff was spoken to. The patient is interviewed. Mood is noted to be depressed. Affect is constricted. The patient's insight and judgment are noted to be still impaired. Coping skills are noted to be poor. Sleep and appetite are also noted to be very poor. The patient is stating that she is feeling bad for what she has contemplated to hurt herself. The patient is stating that she has a family coming from out of state and she states that she needs to be there for Thanksgiving with them. ASSESSMENT: The patient is still depressed. PLAN: To increase the dose on the Lexapro to 10 mg and follow the patient with supportive therapy. Please note that the patient is not ready to be discharged to a lower level of care yet because of her depression. JOB# [id number]
[2017-04-16] MEDS: Lactulose 10 Gm/15 mL 30mL UDC PO SCH ×3 (08:16→20:27)
[2017-04-16] MEDS: Multivitamin Tab PO SCH (08:18)
[2017-04-16] MEDS: Ferrous Sulfate 325 MG TAB PO SCH ×2 (08:18→16:15)
--- NOTE | 2017-04-16 10:38 | General Progress Note ---
Subjective - Review of Systems Service Date: 04/16/17 Subjective: I want to go back to SNF Objective - Results Result Diagrams: 04/15/17 06:00 04/15/17 06:00 Recent Labs: Laboratory Last Values WBC 6.2 Th/cmm (4.8-10.8) D 04/15/17 06:00 RBC 3.38 Mil/cmm (3.80-5.20) L 04/15/17 06:00 Hgb 11.0 gm/dL (12-16) L 04/15/17 06:00 Hct 32.2 % (41.0-60) L 04/15/17 06:00 MCV 95.2 fl (81-100) 04/15/17 06:00 MCH 32.7 pg (27.0-31.0) H 04/15/17 06:00 MCHC Differential 34.3 pg (28.0-36.0) 04/15/17 06:00 RDW 18.3 % (11.5-20.0) 04/15/17 06:00 Plt Count 62 Th/cmm (150-400) L 04/15/17 06:00 MPV 8.2 fl 04/15/17 06:00 Neutrophils % 56.8 % (40.0-80.0) 04/15/17 06:00 Lymphocytes % 29.4 % (20.0-50.0) 04/15/17 06:00 Monocytes % 8.4 % (2.0-10.0) 04/15/17 06:00 Eosinophils % 4.9 % (0.0-5.0) 04/15/17 06:00 Basophils % 0.5 % (0.0-2.0) 04/15/17 06:00 Sodium 131 mEq/L (136-145) L 04/15/17 06:00 Potassium 3.6 mEq/L (3.5-5.1) 04/15/17 06:00 Chloride 103 mEq/L (98-107) 04/15/17 06:00 Carbon Dioxide 25.2 mEq/L (21.0-31.0) 04/15/17 06:00 Anion Gap 6.4 (7.0-16.0) L 04/15/17 06:00 BUN 9 mg/dL (7-25) 04/15/17 06:00 Creatinine 0.5 mg/dL (0.6-1.2) L 04/15/17 06:00 Est GFR ( Amer) > 60.0 ml/min (>90) 04/15/17 06:00 Est GFR (Non-Af Amer) > 60.0 ml/min 04/15/17 06:00 BUN/Creatinine Ratio 18.0 04/15/17 06:00 Glucose 92 mg/dL (70-105) 04/15/17 06:00 Calcium 8.7 mg/dL (8.6-10.3) 04/15/17 06:00 Total Bilirubin 1.7 mg/dL (0.3-1.0) H 04/15/17 06:00 AST 25 U/L (13-39) 04/15/17 06:00 ALT 12 U/L (7-52) 04/15/17 06:00 Alkaline Phosphatase 86 U/L (34-104) 04/15/17 06:00 Total Protein 6.1 gm/dL (6.0-8.3) 04/15/17 06:00 Albumin 3.1 gm/dL (3.7-5.3) L 04/15/17 06:00 Globulin 3.0 gm/dL 04/15/17 06:00 Albumin/Globulin Ratio 1.0 (1.0-1.8) 04/15/17 06:00 - Physical Exam Vitals and I&O: Vital Signs Temp 98.3 F 04/15/17 15:36 Pulse 84 04/15/17 15:36 Resp 20 04/15/17 15:36 BP 113/51 04/15/17 15:36 Pulse Ox 97 04/15/17 15:36 Intake & Output 04/15/17 04/16/17 04/16/17 18:59 06:59 18:59 Intake Total 950 Balance 950 Intake: Oral 950 Other: # Voids 4 # Bowel Movements 2 Stool Characteristics Soft Soft Active Medications: Current Medications Acetaminophen (Tylenol Extra Strength) 500 mg PO Q4H PRN PRN Reason: Pain (Mild) Stop: 06/10/17 14:26 Al Hydrox/Mg Hydrox/Simethicone (Maalox) 30 ml PO Q4HR PRN PRN Reason: GI DISTRESS Stop: 06/10/17 14:29 Escitalopram Oxalate (Lexapro) 10 mg PO DAILY [facility] PRN Reason: Protocol Stop: 06/14/17 08:59 Ferrous Sulfate (Iron) 325 mg PO BID [facility] Stop: 06/10/17 16:59 Last Admin: 04/16/17 08:18 Dose: 325 mg Gabapentin (Neurontin) 300 mg PO TID [facility] Stop: 06/10/17 20:59 Last Admin: 04/16/17 08:18 Dose: 300 mg Lactulose (Cephulac) 60 gm PO TID [facility] Stop: 06/10/17 20:59 Last Admin: 04/16/17 08:16 Dose: 60 gm Lorazepam (Ativan) 0.5 mg PO Q4HR PRN; Protocol PRN Reason: Anxiety Stop: 05/11/17 14:29 Magnesium Hydroxide (Milk Of Magnesia) 30 ml PO HS PRN PRN Reason: Constipation Multivitamins/Vitamin C (Theragran) 1 tab PO DAILY [facility] Stop: 06/11/17 08:59 Last Admin: 04/16/17 08:18 Dose: 1 tab Tramadol HCl (Ultram) 50 mg PO TID PRN PRN Reason: Pain (Moderate) Stop: 06/10/17 14:26 Last Admin: 04/14/17 20:10 Dose: 50 mg Zolpidem Tartrate (Ambien) 5 mg PO HS PRN PRN Reason: Insomnia Stop: 06/10/17 14:29 Last Admin: 04/15/17 20:49 Dose: 5 mg General: Alert, No acute distress HEENT: Atraumatic Neck: Supple Cardiovascular: Regular rate Lungs: Clear to auscultation Abdomen: Bowel sounds, Soft, Other (no guard, no rebound) Extremities: Other (No edema) Neurological: Other (Non ambulatory) Psych/Mental Status: Other (Confused) Assessment/Plan - Assessment Assessment: patient is awake, alert, calm. Dx: Suicidal ideation, Jenkins barre, Hemiparalysis of left side, Chronic anemia, Thrombocytopenia. - Plan Plan: Patient is follow by Psychiatry, she is continue with SNF meds.
--- NOTE | 2017-04-16 18:59 | Progress Notes ---
DATE: 04/16/2017 Staff was spoken to. The patient is interviewed. Mood is irritable. Affect is constricted. Coping skills at this time are noted to be poor. The patient is screaming and yelling and stating that she needs to be moved to the TV room. The patient has been having difficult time to cope with the stress. ASSESSMENT: The patient is still depressed. The patient is currently on Lexapro. PLAN: To continue the patient with supportive therapy. I encouraged the patient to verbalize the concerns rather than to act out. JOB# [id number]
[2017-04-17] MEDS: Lactulose 10 Gm/15 mL 30mL UDC PO SCH ×3 (09:41→20:37)
[2017-04-17] MEDS: Multivitamin Tab PO SCH (09:41)
[2017-04-17] MEDS: Ferrous Sulfate 325 MG TAB PO SCH ×2 (09:41→17:16)
--- NOTE | 2017-04-17 12:04 | General Progress Note ---
Subjective - Review of Systems Service Date: 04/17/17 Subjective: I have something in my neck Objective - Results Result Diagrams: 04/15/17 06:00 04/15/17 06:00 Recent Labs: Laboratory Last Values WBC 6.2 Th/cmm (4.8-10.8) D 04/15/17 06:00 RBC 3.38 Mil/cmm (3.80-5.20) L 04/15/17 06:00 Hgb 11.0 gm/dL (12-16) L 04/15/17 06:00 Hct 32.2 % (41.0-60) L 04/15/17 06:00 MCV 95.2 fl (81-100) 04/15/17 06:00 MCH 32.7 pg (27.0-31.0) H 04/15/17 06:00 MCHC Differential 34.3 pg (28.0-36.0) 04/15/17 06:00 RDW 18.3 % (11.5-20.0) 04/15/17 06:00 Plt Count 62 Th/cmm (150-400) L 04/15/17 06:00 MPV 8.2 fl 04/15/17 06:00 Neutrophils % 56.8 % (40.0-80.0) 04/15/17 06:00 Lymphocytes % 29.4 % (20.0-50.0) 04/15/17 06:00 Monocytes % 8.4 % (2.0-10.0) 04/15/17 06:00 Eosinophils % 4.9 % (0.0-5.0) 04/15/17 06:00 Basophils % 0.5 % (0.0-2.0) 04/15/17 06:00 Sodium 131 mEq/L (136-145) L 04/15/17 06:00 Potassium 3.6 mEq/L (3.5-5.1) 04/15/17 06:00 Chloride 103 mEq/L (98-107) 04/15/17 06:00 Carbon Dioxide 25.2 mEq/L (21.0-31.0) 04/15/17 06:00 Anion Gap 6.4 (7.0-16.0) L 04/15/17 06:00 BUN 9 mg/dL (7-25) 04/15/17 06:00 Creatinine 0.5 mg/dL (0.6-1.2) L 04/15/17 06:00 Est GFR ( Amer) > 60.0 ml/min (>90) 04/15/17 06:00 Est GFR (Non-Af Amer) > 60.0 ml/min 04/15/17 06:00 BUN/Creatinine Ratio 18.0 04/15/17 06:00 Glucose 92 mg/dL (70-105) 04/15/17 06:00 Calcium 8.7 mg/dL (8.6-10.3) 04/15/17 06:00 Total Bilirubin 1.7 mg/dL (0.3-1.0) H 04/15/17 06:00 AST 25 U/L (13-39) 04/15/17 06:00 ALT 12 U/L (7-52) 04/15/17 06:00 Alkaline Phosphatase 86 U/L (34-104) 04/15/17 06:00 Total Protein 6.1 gm/dL (6.0-8.3) 04/15/17 06:00 Albumin 3.1 gm/dL (3.7-5.3) L 04/15/17 06:00 Globulin 3.0 gm/dL 04/15/17 06:00 Albumin/Globulin Ratio 1.0 (1.0-1.8) 04/15/17 06:00 - Physical Exam Vitals and I&O: Vital Signs Temp 97.3 F 04/17/17 06:34 Pulse 62 04/17/17 06:34 Resp 18 04/17/17 06:34 BP 113/60 04/17/17 06:34 Pulse Ox 96 04/17/17 06:34 Intake & Output 04/16/17 04/17/17 04/17/17 18:59 06:59 18:59 Intake Total 1800 120 Balance 1800 120 Intake: Oral 1800 120 Other: # Voids 4 3 # Bowel Movements 1 Active Medications: Current Medications Acetaminophen (Tylenol Extra Strength) 500 mg PO Q4H PRN PRN Reason: Pain (Mild) Stop: 06/10/17 14:26 Al Hydrox/Mg Hydrox/Simethicone (Maalox) 30 ml PO Q4HR PRN PRN Reason: GI DISTRESS Stop: 06/10/17 14:29 Escitalopram Oxalate (Lexapro) 10 mg PO DAILY MARTINE PRN Reason: Protocol Stop: 06/14/17 08:59 Last Admin: 04/17/17 09:41 Dose: 10 mg Ferrous Sulfate (Iron) 325 mg PO BID [facility] Stop: 06/10/17 16:59 Last Admin: 04/17/17 09:41 Dose: 325 mg Gabapentin (Neurontin) 300 mg PO TID [facility] Stop: 06/10/17 20:59 Last Admin: 04/17/17 09:41 Dose: 300 mg Lactulose (Cephulac) 60 gm PO TID [facility] Stop: 06/10/17 20:59 Last Admin: 04/17/17 09:41 Dose: 60 gm Lorazepam (Ativan) 0.5 mg PO Q4HR PRN; Protocol PRN Reason: Anxiety Stop: 05/11/17 14:29 Magnesium Hydroxide (Milk Of Magnesia) 30 ml PO HS PRN PRN Reason: Constipation Multivitamins/Vitamin C (Theragran) 1 tab PO DAILY [facility] Stop: 06/11/17 08:59 Last Admin: 04/17/17 09:41 Dose: 1 tab Tramadol HCl (Ultram) 50 mg PO TID PRN PRN Reason: Pain (Moderate) Stop: 06/10/17 14:26 Last Admin: 04/14/17 20:10 Dose: 50 mg Zolpidem Tartrate (Ambien) 5 mg PO HS PRN PRN Reason: Insomnia Stop: 06/10/17 14:29 Last Admin: 04/16/17 20:27 Dose: 5 mg General: Alert, No acute distress HEENT: Atraumatic, Other (There is a 2 cm induration in left medial line neck.) Neck: Supple, Other (There is a 2 cm induration in left side of neck) Cardiovascular: Regular rate Lungs: Clear to auscultation Abdomen: Bowel sounds, Soft, Other (no guard, no rebound) Extremities: Other (No edema) Neurological: Other (Non ambulatory) Skin: Other (Induration and redness left side of neck) Psych/Mental Status: Other (Confused) Assessment/Plan - Assessment Assessment: patient is awake, alert, calm. Dx: Cellulitis and abcess, Suicidal ideation, Coyne barre, Hemiparalysis of left side, Chronic anemia, Thrombocytopenia. - Plan Plan: Patient is follow by Psychiatry, she is continue with SNF meds. Bactrim is added. Nutritional Asmnt/Malnutr-PDOC - Dietary Evaluation Malnutrition Findings (Please click <Entered> for more info): Nutritional Asmnt/Malnutrition Start: 04/16/17 12: 32 Text: Status: Complete Freq: Document 04/16/17 12:32 FLORINDA (Rec: 04/16/17 12:40 FLORINDA HAYDEN- FNS1) Nutritional Asmnt/Malnutrition Patient General Information Diagnosis Psychosis Pertinent Medical Hx/Surgical Hx CAD, coyne barre with L hemiparalysis, depression, gilbert's syndrome, cholelithiasis with large GB stone on US Subjective Information Pt in Rec room stated that her appetite was good and that she liked the food Current Diet Order/ Nutrition Support hepatic diet Patient / S.O Not Indicated Pertinent Medications Maalox, Fe, lactulose, MOM, theragran, ultram Pertinent Labs labs from 04/15: Na 131, K 3.6 , Cl 103, CO2 25.2, BUN 9, Cr 0.5, Ca 8.7, glucose 92, Alb 3 .1 Nutritional Hx/Data Height 1.68 m Height (Calculated Centimeters) 167.6 Current Weight (lbs) 113.398 kg Weight (Calculated Kilograms) 113.4 Weight (Calculated Grams) 082729.1 Body Mass Index (BMI) 40.3 Recent Weight Change No Weight Status Obese GI Symptoms GI Symptoms None Last BM 04/15 Difficult in: None Food Allergies No Cultural/Ethnic/Taoist Belief Pt denies Usual diet at home Pt states she eats a "regular diet" Skin Integrity/Comment: olayinka score 15, intact Current %PO Good (75-100%) Estimated Nutritional Goals BEE in Kcals: Adj wt of IBW Calories/Kcals/Kg 25-30kcals/kg, of 73kg AdjBW Kcals Calculated 1825-2190kcals/day Protein: Adj wt of IBW Protein g/k.2-1.5g/kg Protein Calculated 88-110g/day Fluid: ml 1825-2190ml/day (1ml/kcal) Nutritional Problem 1. Problem Problem Obesity related to Etiology excessive intake as evidenced by Signs/Symptoms: BMI 40.3. Intervention/Recommendation Comments Recommend low fat, low cholesterol diet Expected Outcomes/Goals Expected Outcomes/Goals PO inake >75%
[2017-04-17] MEDS: Acetaminophen 500 MG TAB PO PRN (15:35)
[2017-04-17] MEDS: Sulfamethoxazole/TMP 800/160mg Tab PO SCH (17:16)
--- NOTE | 2017-04-17 21:54 | Progress Notes ---
DATE: 04/17/2017 SUBJECTIVE: Staff was spoken to. The patient is interviewed. Mood is noted to be anxious. Affect is constricted. The patient's insight and judgment are noted to be still impaired. Impulse control is noted to be poor. The patient is screaming and yelling and has been crying constantly. The patient has no insight into her illness. The patient is stating that she wants to be there with her family for Thanksgiving. ASSESSMENT: The patient is still depressed. PLAN: To continue the patient with the supportive therapy. I encouraged the patient to verbalize the concerns rather than to act out. The patient is currently on 10 mg of the Lexapro and has been able to tolerate the medication. [facility]# [id number]
[2017-04-18] MEDS: Sulfamethoxazole/TMP 800/160mg Tab PO SCH ×2 (09:02→16:31)
[2017-04-18] MEDS: Multivitamin Tab PO SCH (09:03)
[2017-04-18] MEDS: Ferrous Sulfate 325 MG TAB PO SCH ×2 (09:03→16:31)
[2017-04-18] MEDS: Lactulose 10 Gm/15 mL 30mL UDC PO SCH ×3 (09:03→20:46)
--- NOTE | 2017-04-18 12:59 | General Progress Note ---
Subjective - Review of Systems Service Date: 04/18/17 Subjective: I have something in my neck Objective - Results Result Diagrams: 04/15/17 06:00 04/15/17 06:00 Recent Labs: Laboratory Last Values WBC 6.2 Th/cmm (4.8-10.8) D 04/15/17 06:00 RBC 3.38 Mil/cmm (3.80-5.20) L 04/15/17 06:00 Hgb 11.0 gm/dL (12-16) L 04/15/17 06:00 Hct 32.2 % (41.0-60) L 04/15/17 06:00 MCV 95.2 fl (81-100) 04/15/17 06:00 MCH 32.7 pg (27.0-31.0) H 04/15/17 06:00 MCHC Differential 34.3 pg (28.0-36.0) 04/15/17 06:00 RDW 18.3 % (11.5-20.0) 04/15/17 06:00 Plt Count 62 Th/cmm (150-400) L 04/15/17 06:00 MPV 8.2 fl 04/15/17 06:00 Neutrophils % 56.8 % (40.0-80.0) 04/15/17 06:00 Lymphocytes % 29.4 % (20.0-50.0) 04/15/17 06:00 Monocytes % 8.4 % (2.0-10.0) 04/15/17 06:00 Eosinophils % 4.9 % (0.0-5.0) 04/15/17 06:00 Basophils % 0.5 % (0.0-2.0) 04/15/17 06:00 Sodium 131 mEq/L (136-145) L 04/15/17 06:00 Potassium 3.6 mEq/L (3.5-5.1) 04/15/17 06:00 Chloride 103 mEq/L (98-107) 04/15/17 06:00 Carbon Dioxide 25.2 mEq/L (21.0-31.0) 04/15/17 06:00 Anion Gap 6.4 (7.0-16.0) L 04/15/17 06:00 BUN 9 mg/dL (7-25) 04/15/17 06:00 Creatinine 0.5 mg/dL (0.6-1.2) L 04/15/17 06:00 Est GFR ( Amer) > 60.0 ml/min (>90) 04/15/17 06:00 Est GFR (Non-Af Amer) > 60.0 ml/min 04/15/17 06:00 BUN/Creatinine Ratio 18.0 04/15/17 06:00 Glucose 92 mg/dL (70-105) 04/15/17 06:00 Calcium 8.7 mg/dL (8.6-10.3) 04/15/17 06:00 Total Bilirubin 1.7 mg/dL (0.3-1.0) H 04/15/17 06:00 AST 25 U/L (13-39) 04/15/17 06:00 ALT 12 U/L (7-52) 04/15/17 06:00 Alkaline Phosphatase 86 U/L (34-104) 04/15/17 06:00 Total Protein 6.1 gm/dL (6.0-8.3) 04/15/17 06:00 Albumin 3.1 gm/dL (3.7-5.3) L 04/15/17 06:00 Globulin 3.0 gm/dL 04/15/17 06:00 Albumin/Globulin Ratio 1.0 (1.0-1.8) 04/15/17 06:00 - Physical Exam Vitals and I&O: Vital Signs Temp 97.8 F 04/18/17 06:05 Pulse 71 04/18/17 06:05 Resp 19 04/18/17 06:05 BP 109/64 04/18/17 06:05 Pulse Ox 96 04/18/17 06:05 Intake & Output 04/17/17 04/18/17 04/18/17 18:59 06:59 18:59 Intake Total 1600 120 Balance 1600 120 Intake: Oral 1600 120 Other: # Voids 4 3 # Bowel Movements 0 Active Medications: Current Medications Acetaminophen (Tylenol Extra Strength) 500 mg PO Q4H PRN PRN Reason: Pain (Mild) Stop: 06/10/17 14:26 Last Admin: 04/17/17 15:35 Dose: 500 mg Al Hydrox/Mg Hydrox/Simethicone (Maalox) 30 ml PO Q4HR PRN PRN Reason: GI DISTRESS Stop: 06/10/17 14:29 Escitalopram Oxalate (Lexapro) 10 mg PO DAILY MARTINE PRN Reason: Protocol Stop: 06/14/17 08:59 Last Admin: 04/18/17 09:03 Dose: 10 mg Ferrous Sulfate (Iron) 325 mg PO BID [facility] Stop: 06/10/17 16:59 Last Admin: 04/18/17 09:03 Dose: 325 mg Gabapentin (Neurontin) 300 mg PO TID [facility] Stop: 06/10/17 20:59 Last Admin: 04/18/17 09:03 Dose: 300 mg Lactulose (Cephulac) 60 gm PO TID MARTINE Stop: 06/10/17 20:59 Last Admin: 04/18/17 09:03 Dose: 60 gm Lorazepam (Ativan) 0.5 mg PO Q4HR PRN; Protocol PRN Reason: Anxiety Stop: 05/11/17 14:29 Magnesium Hydroxide (Milk Of Magnesia) 30 ml PO HS PRN PRN Reason: Constipation Multivitamins/Vitamin C (Theragran) 1 tab PO DAILY [facility] Stop: 06/11/17 08:59 Last Admin: 04/18/17 09:03 Dose: 1 tab Tramadol HCl (Ultram) 50 mg PO TID PRN PRN Reason: Pain (Moderate) Stop: 06/10/17 14:26 Last Admin: 04/14/17 20:10 Dose: 50 mg Trimethoprim/Sulfamethoxazole (Bactrim Ds) 1 tab PO BID [facility] Stop: 04/27/17 16:59 Last Admin: 04/18/17 09:02 Dose: 1 tab Zolpidem Tartrate (Ambien) 5 mg PO HS PRN PRN Reason: Insomnia Stop: 06/10/17 14:29 Last Admin: 04/17/17 20:38 Dose: 5 mg General: Alert, No acute distress HEENT: Atraumatic, Other (There is a 2 cm induration in left medial line neck.) Neck: Supple, Other (There is a 2 cm induration in left side of neck) Cardiovascular: Regular rate Lungs: Clear to auscultation Abdomen: Bowel sounds, Soft, Other (no guard, no rebound) Extremities: Other (No edema) Neurological: Other (Non ambulatory) Skin: Other (Induration and redness left side of neck) Psych/Mental Status: Other (Confused) Assessment/Plan - Assessment Assessment: patient is awake, alert, calm. Dx: Cellulitis and abcess, Suicidal ideation, Coyne barre, Hemiparalysis of left side, Chronic anemia, Thrombocytopenia. - Plan Plan: Patient is follow by Psychiatry, she is continue with SNF meds. Bactrim is added. Nutritional Asmnt/Malnutr-PDOC - Dietary Evaluation Malnutrition Findings (Please click <Entered> for more info): Nutritional Asmnt/Malnutrition Start: 04/16/17 12: 32 Text: Status: Complete Freq: Document 04/16/17 12:32 [facility] (Rec: 04/16/17 12:40 [facility] Nutritional Asmnt/Malnutrition Patient General Information Diagnosis Psychosis Pertinent Medical Hx/Surgical Hx CAD, coyne barre with L hemiparalysis, depression, gilbert's syndrome, cholelithiasis with large GB stone on US Subjective Information Pt in Rec room stated that her appetite was good and that she liked the food Current Diet Order/ Nutrition Support hepatic diet Patient / S.O Not Indicated Pertinent Medications Maalox, Fe, lactulose, MOM, theragran, ultram Pertinent Labs labs from 04/15: Na 131, K 3.6 , Cl 103, CO2 25.2, BUN 9, Cr 0.5, Ca 8.7, glucose 92, Alb 3 .1 Nutritional Hx/Data Height 1.68 m Height (Calculated Centimeters) 167.6 Current Weight (lbs) 113.398 kg Weight (Calculated Kilograms) 113.4 Weight (Calculated Grams) 522225.1 Body Mass Index (BMI) 40.3 Recent Weight Change No Weight Status Obese GI Symptoms GI Symptoms None Last BM 04/15 Difficult in: None Food Allergies No Cultural/Ethnic/Anabaptist Belief Pt denies Usual diet at home Pt states she eats a "regular diet" Skin Integrity/Comment: olayinka score 15, intact Current %PO Good (75-100%) Estimated Nutritional Goals BEE in Kcals: Adj wt of IBW Calories/Kcals/Kg 25-30kcals/kg, of 73kg AdjBW Kcals Calculated 1825-2190kcals/day Protein: Adj wt of IBW Protein g/k.2-1.5g/kg Protein Calculated 88-110g/day Fluid: ml 1825-2190ml/day (1ml/kcal) Nutritional Problem 1. Problem Problem Obesity related to Etiology excessive intake as evidenced by Signs/Symptoms: BMI 40.3. Intervention/Recommendation Comments Recommend low fat, low cholesterol diet Expected Outcomes/Goals Expected Outcomes/Goals PO inake >75%
[2017-04-18] MEDS: Acetaminophen 500 MG TAB PO PRN (14:16)
[2017-04-18] MEDS ORDERED: Probiotic Screen MC PRN (15:31)
[2017-04-18] MEDS: Lactobacillus Rhamnosus 10 Billion CFU Capsule PO SCH (16:28)
--- NOTE | 2017-04-19 | Progress Notes ---
DATE: 04/18/2017 PSYCHIATRIC PROGRESS NOTE SUBJECTIVE: Staff was spoken to. The patient is interviewed. Mood is noted to be anxious. Affect is constricted. Coping skills at this time are noted to be still poor. Sleep and appetite also noted to be poor. The patient has been still crying, stating that she made a mistake and she is not going to be repeating it, but she states that she needs to be back at the facility for Thanksgiving. Coping skills at this time are noted to be still poor. The patient's suicidal ideation is closely monitored. The patient is currently on Lexapro. PLAN: To continue the patient with the current medications and followup. JOB# [id number]
[2017-04-19 08:18] LABS: % BASOPHILS 0.2 % (0.0-2.0); % EOSINOPHILS 4.3 % (0.0-5.0); % MONOCYTES 5.3 % (2.0-10.0); % NEUTROPHILS 65.2 % (40.0-80.0); HEMATOCRIT 34.3 % (41.0-60); HEMOGLOBIN 11.7 gm/dL (12-16); MEAN CELL VOLUME 97.1 fl (81-100); MEAN CORPUSCULAR HEMOGLOBIN 33.3 pg (27.0-31.0); MEAN CORPUSCULAR HGB CONC 34.3 pg (28.0-36.0); MEAN PLATELET VOLUME 8.1 fl; NEUTROPHILE ABSOLUTE 3.2 Th/cmm (1.8-8.0); PLATELET COUNT 57 Th/cmm (150-400); RED BLOOD COUNT 3.53 Mil/cmm (3.80-5.20); RED CELL DISTRIBUTION WIDTH 19.1 % (11.5-20.0)
[2017-04-19 08:23] LABS: WHITE BLOOD COUNT 4.9 Th/cmm (4.8-10.8)
[2017-04-19 08:43] LABS: ALKALINE PHOSPHATASE 102 U/L (34-104); ANION GAP 7.4 (7.0-16.0); BILIRUBIN,TOTAL 1.5 mg/dL (0.3-1.0); BUN - UREA NITROGEN 8 mg/dL (7-25); CALCIUM SERUM 8.5 mg/dL (8.6-10.3); CARBON DIOXIDE 27.3 mEq/L (21.0-31.0); CHLORIDE 100 mEq/L (98-107); CREATININE - SERUM 0.5 mg/dL (0.6-1.2); GLUCOSE 140 mg/dL (70-105); POTASSIUM SERUM 3.7 mEq/L (3.5-5.1); SGOT 29 U/L (13-39); SGPT/ALT 13 U/L (7-52); SODIUM SERUM 131 mEq/L (136-145)
[2017-04-19] MEDS: Multivitamin Tab PO SCH (09:00)
[2017-04-19] MEDS: Sulfamethoxazole/TMP 800/160mg Tab PO SCH (09:00)
[2017-04-19] MEDS: Ferrous Sulfate 325 MG TAB PO SCH (09:00)
[2017-04-19] MEDS: Lactulose 10 Gm/15 mL 30mL UDC PO SCH ×2 (09:00→15:08)
[2017-04-19] MEDS: Lactobacillus Rhamnosus 10 Billion CFU Capsule PO SCH (09:00)
--- NOTE | 2017-04-19 09:02 | General Progress Note ---
Subjective - Review of Systems Service Date: 04/19/17 Subjective: I have something in my neck Objective - Results Result Diagrams: 04/19/17 08:00 04/19/17 08:00 Recent Labs: Laboratory Last Values WBC 4.9 Th/cmm (4.8-10.8) D 04/19/17 08:00 RBC 3.53 Mil/cmm (3.80-5.20) L 04/19/17 08:00 Hgb 11.7 gm/dL (12-16) L 04/19/17 08:00 Hct 34.3 % (41.0-60) L 04/19/17 08:00 MCV 97.1 fl (81-100) 04/19/17 08:00 MCH 33.3 pg (27.0-31.0) H 04/19/17 08:00 MCHC Differential 34.3 pg (28.0-36.0) 04/19/17 08:00 RDW 19.1 % (11.5-20.0) 04/19/17 08:00 Plt Count 57 Th/cmm (150-400) L 04/19/17 08:00 MPV 8.1 fl 04/19/17 08:00 Neutrophils % 65.2 % (40.0-80.0) 04/19/17 08:00 Lymphocytes % 25.0 % (20.0-50.0) 04/19/17 08:00 Monocytes % 5.3 % (2.0-10.0) 04/19/17 08:00 Eosinophils % 4.3 % (0.0-5.0) 04/19/17 08:00 Basophils % 0.2 % (0.0-2.0) 04/19/17 08:00 Sodium 131 mEq/L (136-145) L 04/19/17 08:00 Potassium 3.7 mEq/L (3.5-5.1) 04/19/17 08:00 Chloride 100 mEq/L (98-107) 04/19/17 08:00 Carbon Dioxide 27.3 mEq/L (21.0-31.0) 04/19/17 08:00 Anion Gap 7.4 (7.0-16.0) 04/19/17 08:00 BUN 8 mg/dL (7-25) 04/19/17 08:00 Creatinine 0.5 mg/dL (0.6-1.2) L 04/19/17 08:00 Est GFR ( Amer) > 60.0 ml/min (>90) 04/19/17 08:00 Est GFR (Non-Af Amer) > 60.0 ml/min 04/19/17 08:00 BUN/Creatinine Ratio 16.0 04/19/17 08:00 Glucose 140 mg/dL (70-105) H 04/19/17 08:00 Calcium 8.5 mg/dL (8.6-10.3) L 04/19/17 08:00 Total Bilirubin 1.5 mg/dL (0.3-1.0) H 04/19/17 08:00 AST 29 U/L (13-39) 04/19/17 08:00 ALT 13 U/L (7-52) 04/19/17 08:00 Alkaline Phosphatase 102 U/L (34-104) 04/19/17 08:00 Ammonia 88 umol/L (16-53) H 04/19/17 08:00 Total Protein 5.9 gm/dL (6.0-8.3) L 04/19/17 08:00 Albumin 3.0 gm/dL (3.7-5.3) L 04/19/17 08:00 Globulin 2.9 gm/dL 04/19/17 08:00 Albumin/Globulin Ratio 1.0 (1.0-1.8) 04/19/17 08:00 - Physical Exam Vitals and I&O: Vital Signs Temp 98.2 F 04/19/17 07:05 Pulse 65 04/19/17 07:05 Resp 20 04/19/17 07:05 BP 136/81 04/19/17 07:05 Pulse Ox 96 04/19/17 07:05 Intake & Output 04/18/17 04/19/17 04/19/17 18:59 06:59 18:59 Intake Total 850 Balance 850 Intake: Oral 850 Other: # Voids 4 # Bowel Movements 2 Active Medications: Current Medications Acetaminophen (Tylenol Extra Strength) 500 mg PO Q4H PRN PRN Reason: Pain (Mild) Stop: 06/10/17 14:26 Last Admin: 04/18/17 14:16 Dose: 500 mg Al Hydrox/Mg Hydrox/Simethicone (Maalox) 30 ml PO Q4HR PRN PRN Reason: GI DISTRESS Stop: 06/10/17 14:29 Escitalopram Oxalate (Lexapro) 10 mg PO DAILY MARTINE PRN Reason: Protocol Stop: 06/14/17 08:59 Last Admin: 04/18/17 09:03 Dose: 10 mg Ferrous Sulfate (Iron) 325 mg PO BID [facility] Stop: 06/10/17 16:59 Last Admin: 04/18/17 16:31 Dose: 325 mg Gabapentin (Neurontin) 300 mg PO TID [facility] Stop: 06/10/17 20:59 Last Admin: 04/18/17 20:46 Dose: 300 mg Lactobacillus Rhamnosus (Culturelle) 1 each PO DAILY [facility] Stop: 06/17/17 15:59 Last Admin: 04/18/17 16:28 Dose: Not Given Lactulose (Cephulac) 60 gm PO TID [facility] Stop: 06/10/17 20:59 Last Admin: 04/18/17 20:46 Dose: 60 gm Lorazepam (Ativan) 0.5 mg PO Q4HR PRN; Protocol PRN Reason: Anxiety Stop: 05/11/17 14:29 Magnesium Hydroxide (Milk Of Magnesia) 30 ml PO HS PRN PRN Reason: Constipation Miscellaneous (Probiotic Screen) 1 ea MC PRN PRN PRN Reason: PROTOCOL Stop: 06/17/17 15:30 Multivitamins/Vitamin C (Theragran) 1 tab PO DAILY [facility] Stop: 06/11/17 08:59 Last Admin: 04/18/17 09:03 Dose: 1 tab Ondansetron HCl (Zofran Odt) 4 mg PO Q6H PRN PRN Reason: Nausea / Vomiting Stop: 06/17/17 15:25 Last Admin: 04/18/17 15:47 Dose: 4 mg Sodium Chloride (Nacl Tab) 1 gm PO DAILY [facility] Stop: 06/18/17 08:59 Tramadol HCl (Ultram) 50 mg PO TID PRN PRN Reason: Pain (Moderate) Stop: 06/10/17 14:26 Last Admin: 04/14/17 20:10 Dose: 50 mg Trimethoprim/Sulfamethoxazole (Bactrim Ds) 1 tab PO BID [facility] Stop: 04/27/17 16:59 Last Admin: 04/18/17 16:31 Dose: 1 tab Zolpidem Tartrate (Ambien) 5 mg PO HS PRN PRN Reason: Insomnia Stop: 06/10/17 14:29 Last Admin: 04/18/17 20:46 Dose: 5 mg General: Alert, No acute distress HEENT: Atraumatic, Other (There is a 2 cm induration in left medial line neck.) Neck: Supple, Other (There is a 2 cm induration in left side of neck) Cardiovascular: Regular rate Lungs: Clear to auscultation Abdomen: Bowel sounds, Soft, Other (no guard, no rebound) Extremities: Other (No edema) Neurological: Other (Non ambulatory) Skin: Other (Induration and redness left side of neck) Psych/Mental Status: Other (Confused) Assessment/Plan - Assessment Assessment: patient is awake, alert, calm. Dx: Cellulitis and abcess, Suicidal ideation, Coyne barre, Hemiparalysis of left side, Chronic anemia, Thrombocytopenia. - Plan Plan: Patient is follow by Psychiatry, she is continue with SNF meds. Bactrim is added. Nutritional Asmnt/Malnutr-PDOC - Dietary Evaluation Malnutrition Findings (Please click <Entered> for more info): Nutritional Asmnt/Malnutrition Start: 04/16/17 12: 32 Text: Status: Complete Freq: Document 04/16/17 12:32 FLORINDA (Rec: 04/16/17 12:40 FLORINDA HAYDEN- FNS1) Nutritional Asmnt/Malnutrition Patient General Information Diagnosis Psychosis Pertinent Medical Hx/Surgical Hx CAD, coyne barre with L hemiparalysis, depression, gilbert's syndrome, cholelithiasis with large GB stone on US Subjective Information Pt in Rec room stated that her appetite was good and that she liked the food Current Diet Order/ Nutrition Support hepatic diet Patient / S.O Not Indicated Pertinent Medications Maalox, Fe, lactulose, MOM, theragran, ultram Pertinent Labs labs from 04/15: Na 131, K 3.6 , Cl 103, CO2 25.2, BUN 9, Cr 0.5, Ca 8.7, glucose 92, Alb 3 .1 Nutritional Hx/Data Height 1.68 m Height (Calculated Centimeters) 167.6 Current Weight (lbs) 113.398 kg Weight (Calculated Kilograms) 113.4 Weight (Calculated Grams) 203744.1 Body Mass Index (BMI) 40.3 Recent Weight Change No Weight Status Obese GI Symptoms GI Symptoms None Last BM 04/15 Difficult in: None Food Allergies No Cultural/Ethnic/Mandaeism Belief Pt denies Usual diet at home Pt states she eats a "regular diet" Skin Integrity/Comment: olayinka score 15, intact Current %PO Good (75-100%) Estimated Nutritional Goals BEE in Kcals: Adj wt of IBW Calories/Kcals/Kg 25-30kcals/kg, of 73kg AdjBW Kcals Calculated 1825-2190kcals/day Protein: Adj wt of IBW Protein g/k.2-1.5g/kg Protein Calculated 88-110g/day Fluid: ml 1825-2190ml/day (1ml/kcal) Nutritional Problem 1. Problem Problem Obesity related to Etiology excessive intake as evidenced by Signs/Symptoms: BMI 40.3. Intervention/Recommendation Comments Recommend low fat, low cholesterol diet Expected Outcomes/Goals Expected Outcomes/Goals PO inake >75%
--- NOTE | 2017-04-19 21:53 | Progress Notes ---
DATE: 04/19/2017 SUBJECTIVE: Staff was spoken to. The patient is interviewed. Mood is noted to be irritable. Affect is constricted. The patient is stating that she made a mistake, but she should not be punished. She states that she has all the support and her family is coming for Thanksgiving. She needs to be back at the facility. The patient's coping skills are noted to be improving. practice managers has been informed that we need to look into possible discharge of the patient back to the facility. ASSESSMENT: The patient is stabilizing. PLAN: To continue patient with these current medications and follow up with the supportive therapy. JOB# [id number]
== END 2017-04-19 17:20 | DRG 885 ==
LOC: GERO 14:13
PROVIDERS: ADMIT Psychiatry & Neurology Psychiatry; ATTEND Psychiatry & Neurology Psychiatry
DX: F29 Unspecified psychosis not due to a substance or known physiological condition (principal); G61.0 Guillain-Barre syndrome; D69.6 Thrombocytopenia, unspecified; G81.94 Hemiplegia, unspecified affecting left nondominant side; R45.851 Suicidal ideations; E80.4 Gilbert syndrome; D64.9 Anemia, unspecified; I25.10 Atherosclerotic heart disease of native coronary artery without angina pectoris; F32.9 Major depressive disorder, single episode, unspecified; K80.20 Calculus of gallbladder without cholecystitis without obstruction; F10.20 Alcohol dependence, uncomplicated; Z79.899 Other long term (current) drug therapy
CPT/HCPCS: 36415-UA; 76700-TC; 80053-TC; 82140-TC; 85025-TC; 90899; Q0162; Z7610